=== PATIENT | female | born 1960 | race American Indian/Alaskan Native ===

== ENCOUNTER 2016-04-08 05:54 | Day surgery (SDC) | payer OTHER ==
[2016-04-06 14:12] VITALS: BMI 21.9
[2016-04-08] MEDS ORDERED: BUPIVACAINE HCL/EPINEPHRINE/PF 30 ML VIAL IJ ONE (07:07)
[2016-04-08] MEDS ORDERED: PROPOFOL 20 ML ONE (07:22)
[2016-04-08] MEDS ORDERED: MIDAZOLAM HCL 2 MG/2 ML SINGLE DOSE VIAL ONE (07:22)
[2016-04-08] MEDS ORDERED: LIDOCAINE HCL/PF 2% SDV 5ML VIAL ONE (07:22)
[2016-04-08] MEDS ORDERED: ONDANSETRON 4 MG/2 ML VIAL ONE (07:46)
[2016-04-08] MEDS ORDERED: ceFAZolin SODIUM 1 GM VIAL ONE (07:46)
[2016-04-08] MEDS ORDERED: DEXAMETHASONE SOD PHOSPHATE 4 MG/1 ML VIAL ONE (07:46)
--- NOTE | 2016-04-08 07:48 | HP ---
Admitting History and Physical - Admission Chief Complaint: Left knee ganglion cyst History of Present Illness: 55 yo F states she has had a ganglion cyst present in her left knee for the past 3 years, but it has been getting larger and causing pain over the past 3 months. She presents on 04/08/16 for planned cyst excision with Dr. Schultz. History Source: Patient Limitations to Obtaining History: No Limitations - Past Medical History SHIRT CLOSER: No: Alzheimer's, CVA, Dementia, Migraine, Multiple Sclerosis, Peripheral Neuropathy, Parkinson's, Seizure, Syncope, TIA, Vertigo, Other Cardiovascular: No: AFIB, Aneurysm, Aortic Insufficiency, Aortic Stenosis, CAD, CHF, Deep Vein Thrombosis, HTN, Hyperlipdemia, NH, Mitral Insufficiency, Mitral Stenosis, Murmur, Pulmonary Hypertension, Other Pulmonary: No: Asthma, Bronchitis, Cancer, COPD, O2 Dependent, Pneumonia, Previously Intubated, Pulmonary Embolus, Pulmonary Fibrosis, Sleep Apnea, Other Gastrointestinal: No: Ascites, Cancer, Constipation, Crohn's Disease, Diverticulitis, Diverticulosis, Esophageal Varices, Gastritis, GERD, GI Bleed, Hemorrhoids, Hiatal Hernia, Inflamatory Bowel Disease, Irritable Bowel Disease, Pancreatitis, Peptic Ulcer Disease, Ulcerative Colitis, Other Hepatobiliary: No: Cirrhosis, Cholelithiasis, Cholecystitis, Choledocholithiasis , Hepatitis A, Hepatitis B, Hepatitis C, Other Reproductive: Yes: Other (Hx hysterectomy) ...: No Heme/Onc: No: Anemia, B12 Deficiency, Bleeding Disorder, Cancer, Current Chemotherapy, Current Radiation Therapy, Hemochromatosis, Hypercoaguable State, Myeloproliferative Synd, Sickle Cell Disease, Sickle Cell Trait, Thrombocytopenia, Other Infectious Disease: No: AIDS, C-Diff, Herpes Zoster, HIV, MRSA, STD's, Tuberculosis, VREF, Other Musculoskeletal: Yes: Other (Left knee Ganglion cyst) Endocrine: Yes: Diabetes Mellitus - Past Surgical History Past Surgical History: Yes: Cholecystectomy, , Hysterectomy - Smoking History Smoking history: Never smoked Have you smoked in the past 12 months: No - Alcohol/Substance Use Hx Alcohol Use: No Home Medications - Allergies Allergies/Adverse Reactions: Allergies Allergy/AdvReac Type Severity Reaction Status Date / Time No Known Drug Allergies Allergy Verified 04/08/16 07:03 - Home Medications Home Medications: Ambulatory Orders Aspirin [Ecotrin] 81 mg PO DAILY 04/06/16 Cholecalciferol (Vitamin D3) [Vitamin D3] 2,000 unit PO DAILY 04/06/16 Cyanocobalamin (Vitamin B-12) [Vitamin B12] 2,500 mcg PO DAILY 04/06/16 Metformin HCl 500 mg PO HS 04/06/16 Review of Systems - Review of Systems Constitutional: reports: No Symptoms Eyes: reports: No Symptoms HENT: reports: No Symptoms Neck: reports: No Symptoms Cardiovascular: reports: No Symptoms Respiratory: reports: No Symptoms Gastrointestinal: reports: No Symptoms Genitourinary: reports: No Symptoms Musculoskeletal: reports: Extremity Pain, Other (Left knee cyst) Neurological: reports: No Symptoms Hematology/Lymphatic: reports: No Symptoms Physical Examination Vital Signs: Vital Signs Temperature 98.2 F 04/08/16 06:56 Pulse Rate 82 04/08/16 06:56 Respiratory Rate 16 04/08/16 06:56 Blood Pressure 128/84 04/08/16 06:56 O2 Sat by Pulse Oximetry (%) 96 04/08/16 07:02 Constitutional: Yes: Well Nourished, No Distress, Calm Eyes: Yes: WNL HENT: Yes: WNL Neck: Yes: WNL Cardiovascular: Yes: WNL Respiratory: Yes: WNL Gastrointestinal: Yes: WNL Musculoskeletal: Yes: Other (Large cyst lateral left knee) Extremities: Yes: Other (Large cyst lateral left knee) Integumentary: Yes: WNL Neurological: Yes: WNL Problem List - Problems (1) Cyst Assessment/Plan: 55 yo F states she has had a ganglion cyst present in her left knee for the past 3 years, but it has been getting larger and causing pain over the past 3 months. She presents on 04/08/16 for planned cyst excision with Dr. Schultz. Code(s): [id number] - Assessment/Plan 55 yo F states she has had a ganglion cyst present in her left knee for the past 3 years, but it has been getting larger and causing pain over the past 3 months. She presents on 04/08/16 for planned cyst excision with Dr. Schultz.
[2016-04-08] MEDS ORDERED: LACTATED RINGERS SOLUTION 1,000 ML IV SCH (09:00)
[2016-04-08] MEDS: ONDANSETRON 4 MG/2 ML VIAL ONE ×2 (09:04→09:05)
--- NOTE | 2016-04-08 09:10 | OP ---
Operative Note - Note: Operative Date: 04/08/16 Pre-Operative Diagnosis: Left knee ganglion cyst Operation: Left peroneal nerve disection, excision left knee ganglion cyst Post-Operative Diagnosis: Same as Pre-op Surgeon: Juventino Schultz Child & Adolescent Psychiatrist: Shu Silverman Anesthesia: General Specimens Removed: Left knee ganglion cyst Estimated Blood Loss (mls): 10 Fluid Volume Replaced (mls): 1,000 Operative Report Dictated: Yes
--- NOTE | 2016-04-08 09:11 | SURG ---
Surgery Restaurant Mgr Note Restaurant Mgr: Shu Silverman PA-C Date of Service: 04/08/16 Diagnosis: Left knee ganglion cyst Procedure: Left peroneal nerve dissection, excision left knee ganglion cyst I was present for the entirety of the operative procedure. For further detail, please refer to operative report. Visit type - Case Type Case Type: Scheduled Admission - New patient This patient is new to me today: Yes Date on this admission: 04/08/16
[2016-04-08] MEDS ORDERED: ACETAMINOPHEN 325 MG TABLET (FP) PO PRN (09:15)
[2016-04-08] MEDS ORDERED: oxyCODONE HCL 5 MG TABLET PO PRN ×2 (09:16)
[2016-04-08] MEDS ORDERED: ONDANSETRON 4 MG/2 ML VIAL IVPUSH PRN (09:55)
[2016-04-08] MEDS ORDERED: PROMETHAZINE HCL 25 MG/1 ML VIAL ONE (10:57)
[2016-04-08] MEDS ORDERED: PROMETHAZINE HCL 25 MG/1 ML VIAL IVPUSH ONE (11:58)
[2016-04-08] MEDS ORDERED: oxyCODONE HCL 5 MG TABLET ONE (12:28)
[2016-04-08] MEDS ORDERED: ACETAMINOPHEN INJECTION 100 ML IVPB ONE (13:02)
[2016-04-08] MEDS ORDERED: ACETAMINOPHEN 1000 MG/100 ML VIAL (NON FORMULARY) IVPB ONE (13:15)
[2016-04-08 15:45] VITALS: BP 126/80; PULSE 71; TEMP 98
--- NOTE | 2016-04-13 13:39 | PATH ---
Surgical Pathology Report Patient Name: MALORIE SUAREZ [facility]. Rec. #: [id number] /Age/Gender: 1960 (Age: 55) / F Account: [id number] [facility] Taken: 04/08/2016 Received: 04/08/2016 Reported: 04/13/2016 Physicians: Juventino Schultz M.D. Specimen(s) Received CYST LEFT KNEE Clinical History Ganglion cyst left knee Final Diagnosis KNEE, LEFT, CYST, EXCISION: GANGLION CYST. Electronically Signed Soraya Gant M.D. Gross Description Received in formalin, labeled "cyst left knee," is a 3.2 x 2.8 x 1.0 cm delaney, intact cystic structure. The lumen contains delaney mucinous material. Automobile Accessories Installer sections are submitted in 2 cassettes [id number]
== END 2016-04-08 14:10 | disposition home or self-care (01) ==
LOC: FASU 05:54
PROVIDERS: ATTEND Orthopaedic Surgery
PROC: 01NH0ZZ Release Peroneal Nerve, Open Approach (ICD-10-PCS; 2016-04-08)
PROC: 0SBD0ZZ Excision of Left Knee Joint, Open Approach (ICD-10-PCS; principal; 2016-04-08 08:04)
DX: M67.462 Ganglion, left knee (principal); G57.32 Lesion of lateral popliteal nerve, left lower limb
CPT/HCPCS: 88304-TC; 94760

== ENCOUNTER 2016-04-24 19:59 | Inpatient (IN) | payer OTHER ==
[2016-04-24] MEDS ORDERED: CLINDAMYCIN 900 MG PREMIX IVPB 50 ML IVPB ONE (20:15)
[2016-04-24] MEDS ORDERED: SODIUM CHLORIDE 1,000 ML IV SCH (20:15)
[2016-04-24] MEDS ORDERED: VANCOMYCIN 1,000 MG in DEXTROSE 5%-WATER - 250 ML IVPB ONE (20:19)
[2016-04-24 20:23] VITALS: BMI 22.1
--- NOTE | 2016-04-24 20:25 | PDOC ---
History of Present Illness - General History Source: Patient Exam Limitations: No Limitations - History of Present Illness Initial Comments: 04/24/16 20:29 The patient is a 55 year old female, with a significant past medical history of diabetes, who presents to the emergency department with a possible wound infection on the outer side of her left knee. She notes that she had ganglion cyst in that area that was removed. But since has been having pain, itchiness and burning. She reports that she has been placed on antibiotics for the last 3 days with minimal relief. She also reports that she applied hydrocortisone yesterday to the area to help with the itchiness and took Benadryl 50 with minimal to no relief. The patient denies chest pain, shortness of breath, headache and dizziness. Denies fever, chills, nausea, vomit, diarrhea and constipation. Allergies: None Past surgical history: Cholecystectomy Social history: No alcohol, tobacco or drug use reported PMD - Dr. Juventino Schultz ([phone]) <Kurt Gibson - Last Filed: 04/24/16 20:32> - General History Source: Patient, Care Provider Exam Limitations: No Limitations <Butch Sullivan - Last Filed: 04/24/16 21:46> - General Chief Complaint: Pain, Acute Stated Complaint: SWELLING ITCHING PAIN POST OP GANGLION CYST SURGER Time Seen by Provider: 04/24/16 20:03 Past History <Kurt Gibson - Last Filed: 04/24/16 20:32> - Past Medical History Anemia: No Asthma: No Cancer: No Cardiac Disorders: No CVA: No COPD: No CHF: No Dementia: No Diabetes: Yes (> 3 YEARS) GI Disorders: No Disorders: No HTN: No Hypercholesterolemia: No Liver Disease: No Seizures: No Thyroid Disease: No - Surgical History Abdominal Surgery: No Appendectomy: No Cardiac Surgery: No Cholecystectomy: Yes Lung Surgery: No Neurologic Surgery: No Orthopedic Surgery: No - Psycho/Social/Smoking Cessation Hx Anxiety: No Suicidal Ideation: No Smoking History: Never smoked Have you smoked in the past 12 months: No Information on smoking cessation initiated: No Hx Alcohol Use: No Drug/Substance Use Hx: No Substance Use Type: None Hx Substance Use Treatment: No <Butch Sullivan - Last Filed: 04/24/16 21:46> - Past Medical History Allergies/Adverse Reactions: Allergies Allergy/AdvReac Type Severity Reaction Status Date / Time No Known Drug Allergies Allergy Verified 04/24/16 20:08 Home Medications: Ambulatory Orders Aspirin [Ecotrin] 81 mg PO DAILY 04/06/16 Cholecalciferol (Vitamin D3) [Vitamin D3] 2,000 unit PO DAILY 04/06/16 Cyanocobalamin (Vitamin B-12) [Vitamin B12] 2,500 mcg PO DAILY 04/06/16 Metformin HCl 500 mg PO HS 04/06/16 Review of Systems - Review of Systems Able to Perform ROS?: Yes Integumentary: Yes: Other (Pain, erythema and itchiness on left lower extremity s/p cyst removal ) All Other Systems: Reviewed and Negative <Kurt Gibson - Last Filed: 04/24/16 20:32> *Physical Exam - Vital Signs Last Vital Signs Temp Pulse Resp BP Pulse Ox 97.9 F 104 H 16 153/103 100 04/24/16 20:10 04/24/16 20:10 04/24/16 20:10 04/24/16 20:10 04/24/16 20:10 <Kurt Gibson - Last Filed: 04/24/16 20:32> - Vital Signs Last Vital Signs Temp Pulse Resp BP Pulse Ox 97.9 F 104 H 16 153/103 100 04/24/16 20:10 04/24/16 20:10 04/24/16 20:10 04/24/16 20:10 04/24/16 20:10 - Physical Exam General Appearance: Yes: Nourished, Appropriately Dressed. No: Apparent Distress HEENT: positive: Normal ENT Inspection Neck: positive: Supple Respiratory/Chest: positive: Lungs Clear, Normal Breath Sounds. negative: Respiratory Distress Cardiovascular: positive: Regular Rhythm, Regular Rate, Tachycardia Gastrointestinal/Abdominal: positive: Soft. negative: Tender Musculoskeletal: positive: Normal Inspection. negative: Vertebral Tenderness Extremity: positive: Normal Capillary Refill, Normal Range of Motion, Other ( EDEMA, ERYTHEMA, TENDERNESS LAT ASPECT DISTAL THIGH AND LEG. W ERYTHEMA EXTANDING PROXIMALLY AND EDEMA DISTALLY. NO FLUCTUATION OR DISCHARGE) Integumentary: positive: Normal Color, Other (SEER ABOVE) Neurologic: positive: Fully Oriented, Alert, Normal Mood/Affect, Normal Response , Motor Strength 5/5 <Butch Sullivan - Last Filed: 04/24/16 21:46> ED Treatment Course - LABORATORY CBC & Chemistry Diagram: 04/24/16 20:45 04/24/16 20:45 <Butch Sullivan - Last Filed: 04/24/16 21:46> Progress Note - Progress Note Progress Note: D/W PMD. NEW ERYTHEMA AND EDEMA IN SPITE OF 3 DAYS OF ABX AFEBRILE. WILL ADMIT FOR IV ABX <Butch Sullivan - Last Filed: 04/24/16 21:46> Medical Decision Making - Medical Decision Making 04/24/16 20:32 Dr. Schultz was called regarding the patient at 8:15pm Dr. Schultz was consulted regarding the patient at 8:17pm [phone] <Kurt Gibson - Last Filed: 04/24/16 20:32> *DC/Admit/Observation/Transfer - Attestations Scribe Attestion: 04/24/16 20:31 Documentation prepared by Kurt Gibson, acting as medical administrative for Butch Sullivan MD <Kurt Gibson - Last Filed: 04/24/16 20:32> - Discharge Dispostion Admit: Yes <Butch Sullivan - Last Filed: 04/24/16 21:46> Diagnosis at time of Disposition: Cellulitis Qualifiers: Site of cellulitis: extremity Site of cellulitis of extremity: lower extremity Laterality: left Qualified Code(s): L03.116 - Cellulitis of left lower limb - Discharge Dispostion Condition at time of disposition: Stable - Referrals Referrals: Juventino Schultz MD [Primary Care Provider] - Karla Lua [Family Provider] -
[2016-04-24] MEDS ORDERED: CLINDAMYCIN PHOSPHATE 600 MG/4 ML VIAL ONE (20:53)
[2016-04-24] MEDS ORDERED: VANCOMYCIN 1,000 MG VIAL (RESTRICTED TO ID ONLY) ONE ×2 (20:53→20:55)
[2016-04-24] MEDS ORDERED: CLINDAMYCIN PHOSPHATE 300 MG/2 ML VIAL ONE (20:54)
[2016-04-24 21:04] LABS: BASOPHIL 0.8 % (0-2.0); EOSINOPHIL 6.6 % (0-4.5); MCH 28.1 pg (25.7-33.7); MCHC 32.5 g/dl (32.0-36.0); MEAN CELL VOLUME 86.4 fl (80-96); MEAN PLT VOLUME 8.9 fl (7.5-11.1); NEUTROPHILS 53.3 % (42.8-82.8); PLATELET COUNT 221 K/MM3 (134-434); RDW 12.3 % (11.6-15.6); WHITE BLOOD COUNT 7.2 K/mm3 (4.0-10.0)
[2016-04-24 21:09] LABS: CALCIUM 9.6 mg/dl (8.4-10.2); CREATININE 0.8 mg/dl (0.6-1.3)
--- NOTE | 2016-04-24 22:07 | HP ---
CHIEF COMPLAINT: Pain, Itching, Burning to LLE PCP: Dr. Lua HISTORY OF PRESENT ILLNESS: This is a 55 y/o female with a past medical history of DM. Who reports to the emergency department with increased pain, pruritus and burning to her left leg. Patient had recent Ganglion Cyst removal on 04/08/16. Patient was on ABX x3 days for cellulitis of the left knee. Patient reports increased swelling and tracking up her left leg today. Patient reports applying hydrocortisone topically and taking Benadryl for the pruritus without relief. Patient denies fever, chills, cough, SOB, CP, AP, N/V/D, constipatin, dysuria. 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) Family History: Non Contributory Allergies No Known Drug Allergies Allergy (Verified 04/24/16 20:08) HOME MEDICATIONS: Home Medications Medication Instructions Recorded Aspirin [Ecotrin] 81 mg PO DAILY 04/06/16 Cholecalciferol (Vitamin D3) 2,000 unit PO DAILY 04/06/16 [Vitamin D3] Cyanocobalamin (Vitamin B-12) 2,500 mcg PO DAILY 04/06/16 [Vitamin B12] Metformin HCl 500 mg PO HS 04/06/16 REVIEW OF SYSTEMS CONSTITUTIONAL: Absent: fever, chills, diaphoresis, generalized weakness, malaise, loss of appetite, weight change HEENT: Absent: rhinorrhea, nasal congestion, throat pain, throat swelling, difficulty swallowing, mouth swelling, ear pain, eye pain, visual changes CARDIOVASCULAR: peripheral edema Absent: chest pain, syncope, palpitations, irregular heart rate, lightheadedness RESPIRATORY: Absent: cough, shortness of breath, dyspnea with exertion, orthopnea, wheezing, stridor, hemoptysis GASTROINTESTINAL: Absent: abdominal pain, abdominal distension, nausea, vomiting, diarrhea, constipation, melena, hematochezia GENITOURINARY: Absent: dysuria, frequency, urgency, hesitancy, hematuria, flank pain, genital pain MUSCULOSKELETAL: joint swelling Absent: myalgia, arthralgia, back pain, neck pain SKIN: erythema, itching to LLE Absent: rash, pallor HEMATOLOGIC/IMMUNOLOGIC: Absent: easy bleeding, easy bruising, lymphadenopathy, frequent infections ENDOCRINE: Absent: unexplained weight gain, unexplained weight loss, heat intolerance, cold intolerance NEUROLOGIC: Absent: headache, focal weakness or paresthesias, dizziness, unsteady gait, seizure, mental status changes, bladder or bowel incontinence PSYCHIATRIC: Absent: anxiety, depression, suicidal or homicidal ideation, hallucinations. PHYSICAL EXAMINATION Vital Signs - 24 hr 04/24/16 20:10 Temperature 97.9 F Pulse Rate 104 H Respiratory 16 Rate Blood Pressure 153/103 O2 Sat by Pulse 100 Oximetry (%) GENERAL: Awake, alert, and fully oriented, in no acute distress. HEAD: Normal with no signs of trauma. EYES: Pupils equal, round and reactive to light, extraocular movements intact, sclera anicteric, conjunctiva clear. No lid lag. EARS, NOSE, THROAT: Ears normal, nares patent, oropharynx clear without exudates. Moist mucous membranes. NECK: Normal range of motion, supple without lymphadenopathy, JVD, or masses. LUNGS: Breath sounds equal, clear to auscultation bilaterally. No wheezes, and no crackles. No accessory muscle use. HEART: Regular rate and rhythm, normal S1 and S2 without murmur, rub or gallop. ABDOMEN: Soft, nontender, not distended, normoactive bowel sounds, no guarding, no rebound, no masses. No hepatomegaly or splenomegaly. MUSCULOSKELETAL: Normal range of motion at all joints. No bony deformities or tenderness. No CVA tenderness. UPPER EXTREMITIES: 2+ pulses, warm, well-perfused. No cyanosis. No clubbing. Cap refill <2 seconds. No peripheral edema. LOWER EXTREMITIES: 2+ pulses, warm, well-perfused. No calf tenderness. +2 LLE above the knee,-ankle peripheral edema, +tenderness to lateral aspect of the left thigh NEUROLOGICAL: Cranial nerves II-XII intact. Normal speech. Gait not observed. PSYCHIATRIC: Cooperative. Good eye contact. Appropriate mood and affect. SKIN: Warm, dry, normal turgor, no rashes. +erythematous from left lateral thigh down to left ankle induration to medial left knee noted. Laboratory Results - last 24 hr 04/24/16 04/24/16 20:45 20:45 WBC 7.2 RBC 4.97 Hgb 14.0 Hct 42.9 MCV 86.4 MCHC 32.5 RDW 12.3 Plt Count 221 MPV 8.9 Neutrophils % 53.3 Lymphocytes % 33.1 Monocytes % 6.2 Eosinophils % 6.6 H Basophils % 0.8 Sodium 139 Potassium 4.1 Chloride 102 Carbon Dioxide 26 Anion Gap 11 BUN 15 Creatinine 0.8 Random Glucose 117 H Calcium 9.6 ASSESSMENT/PLAN: This is a 55 y/o female with a PMHx of DM. Presents to the ED with worsening Cellulitis to LLE. Admitted for Cellulitis to E after Failed Out Patient Therapy for further evaluation of their emergent condition. Plan: 1. Cellulitis of Left Leg - Likely secondary to failed Out Patient Therapy - Blood Cultures-pending - Clindamycin, Vanco given in ED - Will continue same ABX for broad spectrum coverage - Appreciate ID Consult - Will do Dupplex of LLE r/o DVT - Elevate extremity - Tylenol prn 2. DM - BGMs - ISS - Hold Metformin concern for LA - 1800 ADA Diet - Monitor renal function 3. FEN - PO Fluids - Replete lytes prn - 1800 ADA Diet 4. DVT Prophylaxis - OOB - SCD to RLE only - Lovenox SQ Code Status: Full Code Problem List - Problem (1) Cellulitis Code(s): L03.90 - CELLULITIS, UNSPECIFIED Qualifiers: Site of cellulitis: extremity Site of cellulitis of extremity: lower extremity Laterality: left Qualified Code(s): L03.116 - Cellulitis of left lower limb (2) Diabetes mellitus Code(s): E11.9 - TYPE 2 DIABETES MELLITUS WITHOUT COMPLICATIONS (3) DVT prophylaxis Code(s): [id number] - Visit type - Emergency Visit Emergency Visit: Yes ED Registration Date: 04/24/16 Care time: The patient presented to the Emergency Department on the above date and was hospitalized for further evaluation of their emergent condition. - New Patient This patient is new to me today: Yes Date on this admission: 04/24/16 - Critical Care Critical Care patient: No
[2016-04-24] MEDS ORDERED: hydrOXYzine PAMOATE 25 MG CAPSULE (FP) PO PRN (22:32)
[2016-04-24] MEDS ORDERED: hydrOXYzine PAMOATE 25 MG CAPSULE (FP) PO ONE (22:44)
[2016-04-24] MEDS: INSULIN SLIDING SCALE (NOVOLOG) 1 VIAL SQ SCH (22:47)
[2016-04-25] MEDS: INSULIN SLIDING SCALE (NOVOLOG) 1 VIAL SQ SCH ×5 (01:15→22:27)
[2016-04-25] MEDS: CLINDAMYCIN 900 MG PREMIX IVPB 50 ML IVPB SCH ×2 (03:10→09:24)
[2016-04-25] MEDS: ACETAMINOPHEN 325 MG TABLET (FP) PO PRN (06:00)
--- NOTE | 2016-04-25 08:39 | EKG ---
Test Reason : Blood Pressure : / mmHG Vent. Rate : 088 BPM Atrial Rate : 088 BPM P-R Int : 138 ms QRS Dur : 078 ms QT Int : 384 ms P-R-T Axes : 050 066 051 degrees QTc Int : 464 ms NORMAL SINUS RHYTHM NORMAL ECG NO PREVIOUS ECGS AVAILABLE Confirmed by EDE SIFUENTES MD ([id number]) on 04/25/2016 8:38:48 AM Referred By: GALI BELLO Confirmed By:EDE SIFUENTES MD
[2016-04-25] MEDS: CHOLECALCIFEROL (VITAMIN D3) 1,000 UNIT TABLET (FP) PO SCH (09:23)
[2016-04-25] MEDS: CYANOCOBALAMIN 1,000 MCG TABLET (FP) PO SCH (09:23)
[2016-04-25] MEDS: ENOXAPARIN NA (PORCINE) 40 MG/0.4 ML DISP.SYRIN SQ SCH (09:24)
[2016-04-25] MEDS: ASPIRIN COATED 81 MG TABLET.EC PO SCH (09:24)
[2016-04-25 09:27] LABS: CALCIUM 8.9 mg/dl (8.4-10.2); CREATININE 0.9 mg/dl (0.6-1.3)
[2016-04-25 09:47] LABS: MCH 29.1 pg (25.7-33.7); MCHC 33.1 g/dl (32.0-36.0); MEAN CELL VOLUME 87.9 fl (80-96); MEAN PLT VOLUME 9.3 fl (7.5-11.1); PLATELET COUNT 180 K/MM3 (134-434); RDW 12.4 % (11.6-15.6); WHITE BLOOD COUNT 6.2 K/mm3 (4.0-10.0)
--- NOTE | 2016-04-25 09:57 | PN ---
[id number] fever. OBJECTIVE: patient is a 55 y/o female with a past medical history of NIDDM, pt is s/p left ganglion cyst removal 04/08/16. patient was admitted from the emergency department for cellulitis of the left leg after failing outpatient therapy. Vital Signs Period Temp Pulse Resp BP Sys/Aguiar Pulse Ox Last 24 Hr 97.7 F-98.4 F 81-88 18-18 97-127/64-90 95-99 GENERAL: The patient is awake, alert, and fully oriented, in no acute distress. HEAD: Normal with no signs of trauma. EYES: PERRL, extraocular movements intact, sclera anicteric, conjunctiva clear. No ptosis. ENT: Ears normal, nares patent, oropharynx clear without exudates, moist mucous membranes. NECK: Trachea midline, full range of motion, supple. LUNGS: Breath sounds equal, clear to auscultation bilaterally, no wheezes, no crackles, no accessory muscle use. HEART: Regular rate and rhythm, S1, S2 without murmur, rub or gallop. ABDOMEN: Soft, nontender, nondistended, normoactive bowel sounds, no guarding, no rebound, no hepatosplenomegaly, no masses. EXTREMITIES: 2+ pulses, warm, well-perfused, no edema. LEFT LOWER EXTREMITY: induration noted to the surgical site, wound remains well approximated, surrounding erythema extending to the left lateral thigh and lateral distal extremity, erythema marked NEUROLOGICAL: Cranial nerves II through XII grossly intact. Normal speech, gait not observed. PSYCH: Normal mood, normal affect. SKIN: Warm, dry, normal turgor, no rashes or lesions noted Laboratory Results - last 24 hr 04/25/16 04/25/16 00:01 05:50 POC Glucometer 113 90 CBC WBC 6.2 K/mm3 (4.0-10.0) 04/25/16 08:00 RBC 4.31 M/mm3 (3.60-5.2) 04/25/16 08:00 Hgb 12.6 GM/dl (10.7-15.3) 04/25/16 08:00 Hct 37.9 % (32.4-45.2) 04/25/16 08:00 MCV 87.9 fl (80-96) 04/25/16 08:00 MCHC 33.1 g/dl (32.0-36.0) 04/25/16 08:00 RDW 12.4 % (11.6-15.6) 04/25/16 08:00 Plt Count 180 K/MM3 (134-434) 04/25/16 08:00 MPV 9.3 fl (7.5-11.1) 04/25/16 08:00 Neutrophils % 53.3 % (42.8-82.8) 04/24/16 20:45 Lymphocytes % 33.1 % (8-40) 04/24/16 20:45 Monocytes % 6.2 % (3.8-10.2) 04/24/16 20:45 Eosinophils % 6.6 % (0-4.5) H 04/24/16 20:45 Basophils % 0.8 % (0-2.0) 04/24/16 20:45 CMP Sodium 140 mmol/L (136-145) 04/25/16 08:00 Potassium 4.1 mmol/L (3.5-5.1) 04/25/16 08:00 Chloride 105 mmol/L (98-107) 04/25/16 08:00 Carbon Dioxide 24 mmol/L (22-28) 04/25/16 08:00 Anion Gap 11 (8-16) 04/25/16 08:00 BUN 11 mg/dl (7-18) D 04/25/16 08:00 Creatinine 0.9 mg/dl (0.6-1.3) 04/25/16 08:00 POC Glucometer 90 UNITS (()) 04/25/16 05:50 Random Glucose 142 mg/dl (74-106) H D 04/25/16 08:00 Calcium 8.9 mg/dl (8.4-10.2) 04/25/16 08:00 Active Medications Generic Name Dose Route Start Last Admin Trade Name Freq PRN Reason Stop Dose Admin Acetaminophen 650 mg 04/25/16 03:04 04/25/16 06:00 Tylenol - PO 650 mg Q6H PRN Administration FEVER OR PAIN Aspirin 81 mg 04/25/16 10:00 04/25/16 09:24 Ecotrin - PO 81 mg DAILY RENAN Administration Cholecalciferol 1,000 unit 04/25/16 10:00 04/25/16 09:23 Vitamin D3 - PO 1,000 unit DAILY RENAN Administration Cyanocobalamin 1,000 mcg 04/25/16 10:00 04/25/16 09:23 Vitamin B12 - PO 1,000 mcg DAILY RENAN Administration Enoxaparin Sodium 40 mg 04/25/16 10:00 04/25/16 09:24 Lovenox - SQ 40 mg DAILY RENAN Administration Hydroxyzine Pamoate 25 mg 04/24/16 22:32 04/24/16 22:40 Vistaril - PO 25 mg Q6H PRN Administration FOR ITCHING Vancomycin HCl 250 mls @ 166.667 mls/hr 04/25/16 10:30 04/25/16 11:33 Vancomycin (Pre-Docked) IVPB 166.667 mls/hr Q12H RENAN Administration Insulin Aspart 1 vial 04/25/16 11:00 Novolog Vial Sliding Scale - SQ ACHS RENAN Protocol Lactobacillus Acidophilus 1 tab 04/25/16 13:00 Bacid - PO DAILY RENAN Piperacillin Sod/Tazobactam Sod 3.375 gm 04/25/16 10:15 04/25/16 11:34 Zosyn 3.375gm Ivpb (Pre-Docked) IVPB 3.375 gm Q8H-IV RENAN Administration IMAGING doppler ultrasond of left lower extremity, no dvt noted ultrasound of left lower extremity, soft tissue edema, no fluid collection noted ASSESSMENT/PLAN: 1.ID Cellulitis of Left Leg/failed Out Patient Therapy - f/u blood cultures - continue vanco and zosyn - pt afebrile, no leukocytosis noted - ID consulted and followed 2. endo NIDDM - BGM achs with insulin sliding scale FEN - PO Fluids - Replete lytes prn - 1800 ADA Diet DVT Prophylaxis - OOB - SCD to RLE only - Lovenox SQ Code Status: Full Code Visit type - Emergency Visit Emergency Visit: Yes ED Registration Date: 04/24/16 Care time: The patient presented to the Emergency Department on the above date and was hospitalized for further evaluation of their emergent condition. - New Patient This patient is new to me today: Yes Date on this admission: 04/25/16 - Critical Care Critical Care patient: No - Discharge Referral Referred to [facility] No
[2016-04-25] MEDS ORDERED: PIPERACILLIN/TAZOB 3.375 GM 3.375 GM in DEXTROSE 5%-WATER - 50 ML IVPB SCH (10:00)
[2016-04-25] MEDS ORDERED: VANCOMYCIN 1 GRAM (PRE-DOCKED) 250 ML IVPB SCH (10:00)
--- NOTE | 2016-04-25 10:04 | PN ---
Progress Note (short form) - Note Progress Note: ID Consult dictated Cellulitis L LE S/P L LE ganglion cyst excision NIDDM Empiric therapy in this diabetic healthcare worker with vancomycin/ zosyn
[2016-04-25] MEDS: VANCOMYCIN 1 GRAM (PRE-DOCKED) 250 ML IVPB SCH ×2 (11:33→22:27)
[2016-04-25] MEDS: PIPERACILLIN/TAZOB 3.375 GM/50 ML PRE-DOCKED IVPB SCH ×2 (11:34→17:55)
--- NOTE | 2016-04-25 12:20 | CONS ---
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 She underwent an excision of a left knee ganglion cyst on April 08, 2016. She reports that approximately 2 to 3 days later she developed erythema and swelling and discomfort at the surgical site. She was seen in followup by her surgeon and was prescribed a course of Bactrim. Despite taking Bactrim for several days, she had increasing erythema, pain, pruritus, and burning at the site. In addition, she took oral Benadryl and applied topical hydrocortisone. She was advised hospital admission for IV antibiotic therapy after worsening of symptoms. Patient presented to the emergency room, where she was found to have a cellulitis of the left lower extremity. She denies any drainage from the surgical wound. No fever or chills. In the emergency room, she was evaluated. A Doppler exam was performed and was negative for DVT. She was empirically treated with clindamycin and vancomycin. Patient denies of history of serious soft tissue infection requiring hospitalization, or history of MRSA. 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 She is also yhn-axtsanp-wardnsnvk diabetic. PAST MEDICAL HISTORY: Positive for [id number]-[id number] diabetes mellitus. PAST SURGICAL HISTORY: Status post cholecystectomy and section. No known allergies. Medications include aspirin, vitamin D, metformin. Social history negative for tobacco, alcohol, or illicit drug use. SYSTEMS REVIEW: Neurologic: No loss of consciousness, seizure activity, or focal weakness. Cardiac: Negative chest pain or palpitations. Respiratory: Negative cough or sputum production. Gastrointestinal: Negative vomiting or diarrhea. Genitourinary: Negative for urinary tract infection. LABORATORY DATA: White count 7.2, hematocrit 42.9, platelet count 221, creatinine 0.8. Doppler exam negative for DVT. PHYSICAL EXAMINATION: General: She is awake and alert. She is not acutely toxic appearing. Vital Signs: Temperature 98.4. Blood pressure 97/64. Pulse 81, regular. Respirations 18 per minute. Eyes: Sclerae anicteric. Heart Sounds: S1, S2. Lungs: Clear. Abdomen: Soft. No tenderness elicited. No mass, rebound or rigidity. Extremities: Left lower extremity, there is a healed surgical wound present on the lateral aspect of the left knee area. The wound is well healed. There is no expressible drainage. There is some surrounding induration but no fluctuance. There is confluent erythema and warmth extending from that site proximally to the lateral thigh and distally to the calf area. The area is warm to touch. No lymphangitis. IMPRESSION: 1. Cellulitis of the left lower extremity. 2. Status post left lower extremity ganglion cyst excision. 3. Nxq-dijkksq-sqklblclo diabetes mellitus. Empiric antibiotic coverage in this diabetic healthcare worker with vancomycin and Zosyn, elevation, analgesics, surgical followup. Will follow. Thank you for the kind referral. BROOKE CRESPO M.D. MICHEAL/[id number]
[2016-04-25] MEDS: LACTOBACILLUS ACIDOPHILUS 1 EACH TAB (FP) PO SCH (15:27)
[2016-04-26] MEDS: PIPERACILLIN/TAZOB 3.375 GM/50 ML PRE-DOCKED IVPB SCH ×3 (01:44→21:06)
[2016-04-26 08:49] LABS: ALBUMIN 4.2 g/dl (3.5-5.0); ALK PHOS 79 U/L (32-92); ANION GAP 9 (8-16); BASOPHIL 0.6 % (0-2.0); BILIRUBIN,TOTAL 0.5 mg/dl (0.2-1.0); CALCIUM 9.4 mg/dl (8.4-10.2); CO2 27 mmol/L (22-28); CREATININE 0.7 mg/dl (0.6-1.3); EOSINOPHIL 10.3 % (0-4.5); GLUCOSE,RANDOM 98 mg/dl (74-106); MAGNESIUM 1.9 mg/dL (1.8-2.4); MCH 28.4 pg (25.7-33.7); MCHC 32.5 g/dl (32.0-36.0); MEAN CELL VOLUME 87.3 fl (80-96); MEAN PLT VOLUME 9.4 fl (7.5-11.1); PLATELET COUNT 166 K/MM3 (134-434); RDW 12.1 % (11.6-15.6); SGOT/AST 20 U/L (10-42); SGPT/ALT 24 U/L (10-40); TOT PROT 6.9 g/dl (6.4-8.3); WHITE BLOOD COUNT 5.6 K/mm3 (4.0-10.0)
[2016-04-26] MEDS: CYANOCOBALAMIN 1,000 MCG TABLET (FP) PO SCH (09:10)
[2016-04-26] MEDS: ASPIRIN COATED 81 MG TABLET.EC PO SCH (09:10)
[2016-04-26] MEDS: CHOLECALCIFEROL (VITAMIN D3) 1,000 UNIT TABLET (FP) PO SCH (09:10)
[2016-04-26] MEDS: ENOXAPARIN NA (PORCINE) 40 MG/0.4 ML DISP.SYRIN SQ SCH (09:10)
[2016-04-26] MEDS: INSULIN SLIDING SCALE (NOVOLOG) 1 VIAL SQ SCH ×2 (09:11→23:59)
[2016-04-26] MEDS: LACTOBACILLUS ACIDOPHILUS 1 EACH TAB (FP) PO SCH (09:11)
--- NOTE | 2016-04-26 10:21 | PN ---
Progress Note, Physician History of Present Illness: No c/o leg pain No fever/ chills Tolerating antibiotics Blood c/s no growth - Current Medication List Current Medications: Active Medications Acetaminophen (Tylenol -) 650 mg PO Q6H PRN PRN Reason: FEVER OR PAIN Last Admin: 04/25/16 06:00 Dose: 650 mg Aspirin (Ecotrin -) 81 mg PO DAILY [facility] Last Admin: 04/26/16 09:10 Dose: 81 mg Cholecalciferol (Vitamin D3 -) 1,000 unit PO DAILY [facility] Last Admin: 04/26/16 09:10 Dose: 1,000 unit Cyanocobalamin (Vitamin B12 -) 1,000 mcg PO DAILY [facility] Last Admin: 04/26/16 09:10 Dose: 1,000 mcg Enoxaparin Sodium (Lovenox -) 40 mg SQ DAILY [facility] Last Admin: 04/26/16 09:10 Dose: 40 mg Hydroxyzine Pamoate (Vistaril -) 25 mg PO Q6H PRN PRN Reason: FOR ITCHING Last Admin: 04/24/16 22:40 Dose: 25 mg Vancomycin HCl (Vancomycin (Pre-Docked)) 250 mls @ 166.667 mls/hr IVPB Q12H [facility] Last Admin: 04/25/16 22:27 Dose: 166.667 mls/hr Insulin Aspart (Novolog Vial Sliding Scale -) 1 vial SQ ACHS [facility] PRN Reason: Protocol Last Admin: 04/26/16 09:11 Dose: Not Given Lactobacillus Acidophilus (Bacid -) 1 tab PO DAILY [facility] Last Admin: 04/26/16 09:11 Dose: 1 tab Piperacillin Sod/Tazobactam Sod (Zosyn 3.375gm Ivpb (Pre-Docked)) 3.375 gm IVPB Q8H-IV [facility] Last Admin: 04/26/16 09:09 Dose: 3.375 gm - Objective Vital Signs: Vital Signs Temperature 98.5 F 04/26/16 05:28 Pulse Rate 76 04/26/16 05:28 Respiratory Rate 18 04/26/16 05:28 Blood Pressure 101/61 04/26/16 05:28 O2 Sat by Pulse Oximetry (%) 96 04/26/16 05:28 Constitutional: Yes: No Distress Eyes: Yes: Conjunctiva Clear Cardiovascular: Yes: Regular Rate and Rhythm, S1, S2 Respiratory: Yes: CTA Bilaterally Gastrointestinal: Yes: Normal Bowel Sounds, Soft. No: Tenderness Extremities: Yes: Other (decreasing erythema L LE- about 50% better receding margins no wound drainage) Labs: CBC, BMP 04/26/16 07:35 04/26/16 07:35 Assessment/Plan Cellulitis L LE- improved S/P excision, ganglion cyst NIDDM Continue empiric zosyn/ vancomycin additional 24hr Elevation
[2016-04-26] MEDS: VANCOMYCIN 1 GRAM (PRE-DOCKED) 250 ML IVPB SCH ×2 (10:54→23:20)
--- NOTE | 2016-04-26 11:02 | PN ---
[id number] OBJECTIVE: patient is a 55 y/o female with a past medical history of NIDDM, pt is s/p left ganglion cyst removal 04/08/16. patient was admitted from the emergency department for cellulitis of the left leg after failing outpatient therapy. Vital Signs Period Temp Pulse Resp BP Sys/Aguiar Pulse Ox Last 24 Hr 98.0 F-98.5 F 76-86 16-18 101-109/61-64 96-97 PHYSICAL EXAMINATION GENERAL: The patient is awake, alert, and fully oriented, in no acute distress. HEAD: Normal with no signs of trauma. EYES: PERRL, extraocular movements intact, sclera anicteric, conjunctiva clear. No ptosis. ENT: Ears normal, nares patent, oropharynx clear without exudates, moist mucous membranes. NECK: Trachea midline, full range of motion, supple. LUNGS: Breath sounds equal, clear to auscultation bilaterally, no wheezes, no crackles, no accessory muscle use. HEART: Regular rate and rhythm, S1, S2 without murmur, rub or gallop. ABDOMEN: Soft, nontender, nondistended, normoactive bowel sounds, no guarding, no rebound, no hepatosplenomegaly, no masses. EXTREMITIES: 2+ pulses, warm, well-perfused, no edema. LEFT LOWER EXTREMITY: no induration noted to the surgical site, wound remains well approximated, surrounding erythema extending to the left lateral thigh and lateral distal extremity, erythema is not expanding past markings NEUROLOGICAL: Cranial nerves II through XII grossly intact. Normal speech, gait not observed. PSYCH: Normal mood, normal affect. SKIN: Warm, dry, normal turgor, no rashes or lesions note Laboratory Results - last 24 hr 04/25/16 04/26/16 04/26/16 15:06 07:35 07:35 WBC 5.6 RBC 4.57 Hgb 13.0 Hct 39.9 MCV 87.3 MCHC 32.5 RDW 12.1 Plt Count 166 MPV 9.4 Neutrophils % 47.0 Lymphocytes % 34.8 Monocytes % 7.3 Eosinophils % 10.3 H Basophils % 0.6 Sodium 139 Potassium 4.4 Chloride 103 Carbon Dioxide 27 Anion Gap 9 BUN 13 Creatinine 0.7 D Creat Clearance w eGFR > 60 POC Glucometer 129 Random Glucose 98 D Calcium 9.4 Magnesium 1.9 Total Bilirubin 0.5 AST 20 ALT 24 Alkaline Phosphatase 79 Total Protein 6.9 Albumin 4.2 Active Medications Generic Name Dose Route Start Last Admin Trade Name Freq PRN Reason Stop Dose Admin Acetaminophen 650 mg 04/25/16 03:04 04/25/16 06:00 Tylenol - PO 650 mg Q6H PRN Administration FEVER OR PAIN Aspirin 81 mg 04/25/16 10:00 04/26/16 09:10 Ecotrin - PO 81 mg DAILY [facility] Administration Cholecalciferol 1,000 unit 04/25/16 10:00 04/26/16 09:10 Vitamin D3 - PO 1,000 unit DAILY [facility] Administration Cyanocobalamin 1,000 mcg 04/25/16 10:00 04/26/16 09:10 Vitamin B12 - PO 1,000 mcg DAILY [facility] Administration Enoxaparin Sodium 40 mg 04/25/16 10:00 04/26/16 09:10 Lovenox - SQ 40 mg DAILY [facility] Administration Hydroxyzine Pamoate 25 mg 04/24/16 22:32 04/24/16 22:40 Vistaril - PO 25 mg Q6H PRN Administration FOR ITCHING Vancomycin HCl 250 mls @ 166.667 mls/hr 04/25/16 10:30 04/26/16 10:54 Vancomycin (Pre-Docked) IVPB 166.667 mls/hr Q12H [facility] Administration Insulin Aspart 1 vial 04/25/16 11:00 04/26/16 09:11 Novolog Vial Sliding Scale - SQ Not Given ACHS [facility] Protocol Lactobacillus Acidophilus 1 tab 04/25/16 13:00 04/26/16 09:11 Bacid - PO 1 tab DAILY [facility] Administration Piperacillin Sod/Tazobactam Sod 3.375 gm 04/25/16 10:15 04/26/16 09:09 Zosyn 3.375gm Ivpb (Pre-Docked) IVPB 3.375 gm Q8H-IV [facility] Administration Microbiology 04/24/16 20:45 Blood - Peripheral Venous Blood Culture - Preliminary NO GROWTH OBTAINED AFTER 24 HOURS, INCUBATION TO CONTINUE FOR 4 DAYS. 04/24/16 20:45 Blood - Peripheral Venous Blood Culture - Preliminary NO GROWTH OBTAINED AFTER 24 HOURS, INCUBATION TO CONTINUE FOR 4 DAYS. IMAGING doppler ultrasond of left lower extremity, no dvt noted ultrasound of left lower extremity, soft tissue edema, no fluid collection noted ASSESSMENT/PLAN: 1.ID Cellulitis of Left Leg/failed Out Patient Therapy - f/u blood cultures - continue vanco and zosyn - pt afebrile, no leukocytosis noted, erythema is much improved - ID consulted and followed 2. endo NIDDM - continue BGM achs with insulin sliding scale FEN - PO Fluids - Replete lytes prn - 1800 ADA Diet DVT Prophylaxis - OOB - SCD to RLE only - Lovenox SQ Code Status: Full Code Visit type - Emergency Visit Emergency Visit: Yes ED Registration Date: 04/24/16 Care time: The patient presented to the Emergency Department on the above date and was hospitalized for further evaluation of their emergent condition. - New Patient This patient is new to me today: No - Critical Care Critical Care patient: No - Discharge Referral Referred to [facility] Med P.C.: No
[2016-04-26 22:39] VITALS: BP 112/64; PULSE 82; TEMP 98
[2016-04-27] MEDS: ACETAMINOPHEN 325 MG TABLET (FP) PO PRN (01:00)
[2016-04-27] MEDS: PIPERACILLIN/TAZOB 3.375 GM/50 ML PRE-DOCKED IVPB SCH (01:41)
--- NOTE | 2016-04-27 08:36 | PN ---
Progress Note, Physician History of Present Illness: No c/o leg pain No fever/ chills Tolerating antibiotics - Current Medication List Current Medications: Active Medications Acetaminophen (Tylenol -) 650 mg PO Q6H PRN PRN Reason: FEVER OR PAIN Last Admin: 04/27/16 01:00 Dose: 650 mg Aspirin (Ecotrin -) 81 mg PO DAILY [facility] Last Admin: 04/26/16 09:10 Dose: 81 mg Cholecalciferol (Vitamin D3 -) 1,000 unit PO DAILY [facility] Last Admin: 04/26/16 09:10 Dose: 1,000 unit Cyanocobalamin (Vitamin B12 -) 1,000 mcg PO DAILY [facility] Last Admin: 04/26/16 09:10 Dose: 1,000 mcg Enoxaparin Sodium (Lovenox -) 40 mg SQ DAILY [facility] Last Admin: 04/26/16 09:10 Dose: 40 mg Hydroxyzine Pamoate (Vistaril -) 25 mg PO Q6H PRN PRN Reason: FOR ITCHING Last Admin: 04/24/16 22:40 Dose: 25 mg Vancomycin HCl (Vancomycin (Pre-Docked)) 250 mls @ 166.667 mls/hr IVPB Q12H [facility] Last Admin: 04/26/16 23:20 Dose: 166.667 mls/hr Insulin Aspart (Novolog Vial Sliding Scale -) 1 vial SQ ACHS [facility] PRN Reason: Protocol Last Admin: 04/26/16 23:59 Dose: Not Given Lactobacillus Acidophilus (Bacid -) 1 tab PO DAILY [facility] Last Admin: 04/26/16 09:11 Dose: 1 tab Piperacillin Sod/Tazobactam Sod (Zosyn 3.375gm Ivpb (Pre-Docked)) 3.375 gm IVPB Q8H-IV [facility] Last Admin: 04/27/16 01:41 Dose: 3.375 gm - Objective Vital Signs: Vital Signs Temperature 98.0 F 04/26/16 22:38 Pulse Rate 82 04/26/16 22:38 Respiratory Rate 17 04/27/16 07:46 Blood Pressure 112/64 04/26/16 22:38 O2 Sat by Pulse Oximetry (%) 95 04/27/16 07:46 Constitutional: Yes: No Distress Eyes: Yes: Conjunctiva Clear Cardiovascular: Yes: Regular Rate and Rhythm, S1, S2 Respiratory: Yes: CTA Bilaterally Gastrointestinal: Yes: Normal Bowel Sounds, Soft. No: Tenderness Extremities: Yes: Other (erythema/ warmth LE nearly all resolved wound well- healed No fluctuance) Labs: CBC, BMP 04/26/16 07:35 04/26/16 07:35 Assessment/Plan Cellulitis L LE- improved S/P excision, ganglion cyst NIDDM Substitute po Bactrim DS bid + keflex 500mg po q6h x7d Outpatient surgical follow up Elevation
--- NOTE | 2016-05-04 07:28 | DS ---
Physical Exam: SUBJECTIVE: Patient seen and examined, patient reports feeling well, reports resolution of leg pain, denies any tactile fever. OBJECTIVE: This is a 55 y/o female with a past medical history of DM. Who reports to the emergency department with increased pain, pruritus and burning to her left leg. Patient had recent Ganglion Cyst removal on 04/08/16. Patient was on ABX x3 days for cellulitis of the left knee. Patient reports increased swelling and tracking up her left leg today. Patient reports applying hydrocortisone topically and taking Benadryl for the pruritus without relief. Patient denies fever, chills, cough, SOB, CP, AP, N/V/D, constipatin, dysuria. Patient denies calf pain ER course was notable for: (1) Glucose 117 (2) EKG- NSR no ST or TWI (3) Clindamycin, Vancomycin given in ED PHYSICAL EXAM GENERAL: The patient is awake, alert, and fully oriented, in no acute distress. HEAD: Normal with no signs of trauma. EYES: PERRL, extraocular movements intact, sclera anicteric, conjunctiva clear. No ptosis. ENT: Ears normal, nares patent, oropharynx clear without exudates, moist mucous membranes. NECK: Trachea midline, full range of motion, supple. LUNGS: Breath sounds equal, clear to auscultation bilaterally, no wheezes, no crackles, no accessory muscle use. HEART: Regular rate and rhythm, S1, S2 without murmur, rub or gallop. ABDOMEN: Soft, nontender, nondistended, normoactive bowel sounds, no guarding, no rebound, no hepatosplenomegaly, no masses. EXTREMITIES: 2+ pulses, warm, well-perfused, no edema. LEFT LOWER EXTREMITY: no induration noted to the surgical site, wound remains well approximated, surrounding erythema extending to the left lateral thigh and lateral distal extremity, erythema is not expanding past markings NEUROLOGICAL: Cranial nerves II through XII grossly intact. Normal speech, gait not observed. PSYCH: Normal mood, normal affect. SKIN: Warm, dry, normal turgor, no rashes or lesions note LABS CBC WBC 5.6 K/mm3 (4.0-10.0) 04/26/16 07:35 RBC 4.57 M/mm3 (3.60-5.2) 04/26/16 07:35 Hgb 13.0 GM/dl (10.7-15.3) 04/26/16 07:35 Hct 39.9 % (32.4-45.2) 04/26/16 07:35 MCV 87.3 fl (80-96) 04/26/16 07:35 MCHC 32.5 g/dl (32.0-36.0) 04/26/16 07:35 RDW 12.1 % (11.6-15.6) 04/26/16 07:35 Plt Count 166 K/MM3 (134-434) 04/26/16 07:35 MPV 9.4 fl (7.5-11.1) 04/26/16 07:35 Neutrophils % 47.0 % (42.8-82.8) 04/26/16 07:35 Lymphocytes % 34.8 % (8-40) 04/26/16 07:35 Monocytes % 7.3 % (3.8-10.2) 04/26/16 07:35 Eosinophils % 10.3 % (0-4.5) H 04/26/16 07:35 Basophils % 0.6 % (0-2.0) 04/26/16 07:35 CMP Sodium 139 mmol/L (136-145) 04/26/16 07:35 Potassium 4.4 mmol/L (3.5-5.1) 04/26/16 07:35 Chloride 103 mmol/L (98-107) 04/26/16 07:35 Carbon Dioxide 27 mmol/L (22-28) 04/26/16 07:35 Anion Gap 9 (8-16) 04/26/16 07:35 BUN 13 mg/dl (7-18) 04/26/16 07:35 Creatinine 0.7 mg/dl (0.6-1.3) D 04/26/16 07:35 Creat Clearance w eGFR > 60 (>60) 04/26/16 07:35 POC Glucometer 129 UNITS (()) 04/25/16 15:06 Random Glucose 98 mg/dl (74-106) D 04/26/16 07:35 Calcium 9.4 mg/dl (8.4-10.2) 04/26/16 07:35 Magnesium 1.9 mg/dL (1.8-2.4) 04/26/16 07:35 Total Bilirubin 0.5 mg/dl (0.2-1.0) 04/26/16 07:35 AST 20 U/L (10-42) 04/26/16 07:35 ALT 24 U/L (10-40) 04/26/16 07:35 Alkaline Phosphatase 79 U/L (32-92) 04/26/16 07:35 Total Protein 6.9 g/dl (6.4-8.3) 04/26/16 07:35 Albumin 4.2 g/dl (3.5-5.0) 04/26/16 07:35 Microbiology 04/24/16 20:45 Blood - Peripheral Venous Blood Culture - Final NO GROWTH AFTER 5 DAYS INCUBATION 04/24/16 20:45 Blood - Peripheral Venous Blood Culture - Final NO GROWTH AFTER 5 DAYS INCUBATION IMAGING doppler ultrasond of left lower extremity, no dvt noted ultrasound of left lower extremity, soft tissue edema, no fluid collection noted HOSPITAL COURSE: Patient was admitted from the emergency department for cellulitis of Left Leg /failed Out Patient Therapy. Blood cultures remained negative to date. she was treated with 3 days of vanco and zosyn. patient remained afebrile, no leukocytosis noted. Erythema is much improved. ID, Dr Bee was consulted and followed patient throughout hospitalization. Patient has a past medical history of NIDDM, she was placed on BGM achs with insulin sliding scale Date of Admission:04/24/16 Date of Discharge: 05/04/16 Minutes to complete discharge: 45 Discharge Summary Reason For Visit: CELLULITIS Condition: Stable - Instructions Diet, Activity, Other Instructions: resume regular diabetic diet start bactrim and keflex, please take medication as prescribed please keep follow appointment with Dr Schultz scheduled for this if fever develops or if redness or swelling worsens please return to the emergency department. Referrals: Juventino Schultz MD [Primary Care Provider] - 1 Week Karla Lua [Family Provider] - Disposition: HOME - Home Medications Comprehensive Discharge Medication List: Ambulatory Orders Aspirin [Ecotrin] 81 mg PO DAILY 04/06/16 Cholecalciferol (Vitamin D3) [Vitamin D3] 2,000 unit PO DAILY 04/06/16 Cyanocobalamin (Vitamin B-12) [Vitamin B12] 2,500 mcg PO DAILY 04/06/16 Metformin HCl 500 mg PO HS 04/06/16 Acetaminophen [Tylenol .Regular Strength -] 650 mg PO Q6H PRN #0 tablet Cephalexin Monohydrate [Keflex -] 500 mg PO Q6H #28 capsule 04/27/16 Hydroxyzine Pamoate [Vistaril -] 25 mg PO Q6H PRN #30 capsule 04/27/16 Lactobacillus Acidophilus [Bacid -] 1 tab PO DAILY tab 04/27/16 Sulfamethoxazole/Trimethoprim [Bactrim Ds -] 1 tab PO BID #14 tablet 04/27/16 This patient is new to me today: No Emergency Visit: Yes ED Registration Date: 04/24/16 Care time: The patient presented to the Emergency Department on the above date and was hospitalized for further evaluation of their emergent condition. Critical Care patient: No - Discharge Referral Referred to [facility] Med P.C.: No
== END 2016-04-27 09:48 | disposition home or self-care (01) | DRG 603 ==
LOC: FER 19:59 → FM/S 22:04
PROVIDERS: ADMIT Internal Medicine; ATTEND Nurse Practitioner Family
DX: L03.116 Cellulitis of left lower limb (principal); E11.9 Type 2 diabetes mellitus without complications; Z79.4 Long term (current) use of insulin
CPT/HCPCS: 36415; 76882; 80048; 80053; 83735; 85025; 85027; 87040; 93005; 93971-TC; 99282-25; G0480